=== PATIENT | male | born 1980 | race Two or more races ===

== ENCOUNTER 2025-03-28 13:47 | Emergency (ER) | payer MEDICAID, SELFPAY ==
[2025-03-28] VITALS (7 sets, daily range): BP systolic 145–174; BP diastolic 98–129; PULSE 87–96; RESP 16–99; TEMP 36.7; O2SAT 96–99; BMI 27.6
--- NOTE | 2025-03-28 13:50 | EKG_ITS ---
[facility] Test Date: 2025-03-28 Pat Name: VANESSA LAWSON Department: Room: - Gender: Male [employer] [place]: : 1980 Requested By: Marv Hager Order Number: [id number] Reading MD: Marv Hager Measurements Intervals [place] Rate: 94 P: 59 MT: 160 QRS: 55 QRSD: 82 T: 42 QT: 368 QTc: 460 Interpretive Statements SINUS RHYTHM No previous ECG available for comparison /store/S0/[id number]/[id number].pdf
--- NOTE | 2025-03-28 13:50 | XR_ITS ---
Exam: Chest 1 view, AP Date and time of exam: 03/28/2025, 2:31 p.m. Comparison: None INDICATION: Mental status changes Findings: Normal heart size. No mediastinal adenopathy. No acute fracture No pulmonary edema or pneumonia. Impression: No active disease.
--- NOTE | 2025-03-28 13:50 | XR_ITS ---
Examination: CT brain head without contrast. 2-D sagittal coronal reconstructions Date and time of exam: 03/28/2025, 1:59 p.m. CTDI: vol (mGy): 54 DLP: (mGycm): 1058 INDICATION: Slurred speech Technique: Multiple CT axial sections of the brain have been obtained, 5 mm slice thickness. Contrast has not been administered. 2-D sagittal, coronal reconstructions have been obtained Low dose protocols were performed. One or more of the following dose reduction techniques were used; automated exposure control, adjustment of the mA and/or KV according to patient size, use of iterative reconstruction technique. Findings: 6 x 3 cm hyperdense right frontal/temporal intraparenchymal hemorrhage. Associated peripheral intraparenchymal edema. There is compression of the anterior and midportion of the right lateral ventricle. 6 mm right to left midline shift. Basilar cisterns appear patent. Fourth ventricle is midline. Cranial vault intact. Impression: 6 x 3 cm acute right intraparenchymal hemorrhage with mass effect and 6 mm right to left midline shift with compression of the right lateral ventricle. Basilar cisterns appear patent. No other acute abnormality seen. Findings reported to Dr. Bernard in ER at 2:04 p.m.
--- NOTE | 2025-03-28 14:05 | PD.EDNEURO ---
Neuro Symptoms Deficit-RME/HPI General Chief Complaint: Neuro Symptoms/Deficit Stated Complaint: STROKE ALERT Time Seen by Provider: 03/28/25 13:50 Arrival date/time: 03/28/25 13:47 RME / HPI RME / HPI Narrative: Patient is a 45 year old male with a past medical history of diabetes mellitus type 2-non insulin depdent who presented to the emergency room via private vehicle with a chief complaint of left arm weakness and right facial droop and drooling. Patient was found on the ground by his family member who found on the ground at approximately 1308 on 03/28/2025. Patient stated he woke up at approximately 8 AM this morning and noticed upper extremity weakness and facial droop. Occipital headache 7 out of 10 first noted this morning at 8 AM. Denied blurry vision. Denied nausea. Patient denied previous history of stroke. Denied history of hypertension. Denied meth or cocaine. Per family member alcohol use, unclear how much day. Stroke alert activated-->CT head :acute right intraparenchymal hemorrhage with mass effect and 6 mm right to left midline shift with compression of the right lateral ventricle-->SBP <160 NIHSS 10 GCS 15 points Related Data Allergies Allergy/AdvReac Type Severity Reaction Status Date / Time NKA* Allergy Uncoded 05/26/10 15:29 Review of Systems Review of Systems Narrative Review of Systems: General appearance: head ache NO weight change, NO fatigue, NO weakness, NO fever, NO chills, NO night sweats, No cough Skin: NO rash, NO itching, NO sores, NO moles HEENT: NO Trauma, NO nausea, NO vomiting, NO visual changes, NO blurry vision, NO double vision, NO tinnitus, NO vertigo, NO ear discharge, NO rhinorrhea, NO stuffiness, NO sneezing, NO allergy, NO epistaxis. NO Hoarseness, NO sore throat, NO swollen neck. Cardiac: NO Palpitations, NO dyspnea on exertion, NO orthopnea, NO paroxysmal nocturnal dyspnea, NO edema Respiratory: NO Shortness of Breath, NO Wheezing, NO Cough, NO Sputum, NO hemoptysis GI:NO appetite, NO nausea, NO vomiting, NO dysphagia, NO changes in bowel frequency, NO stool color, NO diarrhea, NO constipation, NO hemetemesis, NO hemorrhoids, NO melena, NO hematechezia, NO abdominal pain, NO jaundice Renal: NO frequency, NO hesitancy, NO urgency, NO hematuria, NO nocturia, NO incontinence MSK: NO muscle weakness, NO gout, NO arthritis, NO muscle stiffness Neuro: Yes headaches, NO tremors, Yes weakness-left, facial droop NO paralysis, NO seizures, NO loss of consciousness, NO numbness. Hem: NO anemia, NO easy bruising/bleeding, NO petechiae, NO purpura Endo: NO heat/cold intolerance, NO excessive sweating, NO polyuria, NO polydipsia, NO polyphagia, NO thyroid problems, NO diabetes Pysch: NO mood, NO anxiety, NO depression ED Exam Narrative Physical exam: General Appearance: Alert & Oriented X3, well-nourished male who is lying in bed in mild distress given upper extremity weakness and facial droop HEENT: Skull symmetrical and atraumatic. Conjunctivae pin and moist. Pupils equal, round, reactive to light and accommodation (PERRL). External ear without lesion or discharge. Straight, nares patient, mucosa pink, no discharge. No thyroid nodule appreciated. No cervical lymphadenopathy. Cardio: Normal Rate and Rhythm with S1 and S2 heart sounds. No murmurs or extra heart sounds auscultated. No bruits on carotid auscultation. No peripheral edema or cyanosis. Lungs: Symmetric with good expansion. Chest and back non-tender. Breath sounds vesicular without crackles, wheezing or rhonchi Abdomen: Non-tender, Non-distended, Normal Reactive Bowel Sounds Neuro: Alert, cooperative, oriented to person, place, and time. Speech clear. Left Upper motor strength 0/5 and Left Lower motor strength 3/5. Sensation intact. Course Quality Measures none Orders Category Date Time Status Bedside Blood Glucose NOW Care 03/28/25 13:50 Active Guest Relations Associate NOW Care 03/28/25 13:50 Active Continuous Pulse Oximetry NOW Care 03/28/25 13:50 Completed EKG (ED ONLY) *Do not use* NOW Care 03/28/25 13:50 Completed [place] [Urinary Catheter] X1 Care 03/28/25 14:12 Active In and Out Catheter NEEDED Care 03/28/25 13:50 Active Insert IV NOW Care 03/28/25 13:50 Active Miscellaneous Nursing Order PRN Care 03/28/25 14:05 Active NIH Stroke Scale now Care 03/28/25 13:50 Active NPO NOW Care 03/28/25 13:50 Active Nurse Swallow Screen x1 Care 03/28/25 13:50 Active Consult to Neurology / Tele-Neurology Routine Cons 03/28/25 13:50 Active Referral - Bobbin Disker Stat Cons 03/28/25 14:[address] angio stroke protocol Stat Exams 03/28/25 13:[address] stroke protocol Stat Exams 03/28/25 13:50 Completed EKG (ED Only) Stat Exams 03/28/25 13:50 Draft XR chest 1V portable Stat Exams 03/28/25 13:50 Taken Alcohol, Blood Medical Stat Lab 03/28/25 13:56 Received Alcohol, Urine Stat Lab 03/28/25 13:50 Ordered Arterial Blood Gas Stat Lab 03/28/25 14:17 Completed B-Type Natriuretic Peptide Stat Lab 03/28/25 13:56 Received CBC Stat Lab 03/28/25 13:56 Completed Comprehensive Metabolic Panel Stat Lab 03/28/25 13:56 Received Drug Screen,Urine Stat Lab 03/28/25 13:50 Ordered Magnesium Stat Lab 03/28/25 13:56 Received Partial Thromboplastin Time Stat Lab 03/28/25 13:56 Completed Prothrombin Time with INR Stat Lab 03/28/25 13:56 Completed TSH [Thyroid Stimulating Hormone] Stat Lab 03/28/25 13:56 Received Troponin I Stat Lab 03/28/25 13:56 Received Type and Screen Stat Lab 03/28/25 14:16 Ordered Urinalysis, C/S if Indicated Stat Lab 03/28/25 13:50 Ordered Labetalol IV [Trandate IV] Med 03/28/25 13:50 Active 10 mg IVP Q15M PRN Nicardipine/Ns 20Mg Ivpb [Cardene Ivpb] Med 03/28/25 14:14 Active 20 mg in 200 ml IV 5 mg/hr Ondansetron Inj [Zofran Inj] Med 03/28/25 13:50 Active 4 mg IVP Q4HR PRN Sodium Chloride 0.9% 1000 ml [Ns] 1,000 ml Med 03/28/25 14:00 Active IV Q10H Oxygen Delivery NOW RT 03/28/25 13:50 Active Vital Signs Vital signs: Vital Signs Pulse Rate 96 03/28/25 13:53 Respiratory Rate 18 03/28/25 13:53 Blood Pressure 145/98 H 03/28/25 13:53 Pulse Oximetry (%) 96 03/28/25 13:53 Oxygen Delivery Method Room Air 03/28/25 13:53 Neuro Symptoms / Deficit Patient data External records reviewed:: [facility] previous records Clinical information provided by:: patient, EMS and family Social determinants that could affect healthcare access:: none Patient has the following chronic illnesses:: diabetes mellitus Type 2, non insulin dependent How is presenting disease/condition affected by chronic disease/condition?: exacerbated by (HTN) Evaluation data The following diagnostics were reviewed and interpreted by me:: lab results, radiology exam(s) and EKG tracing(s) Lab and/or radiology exams considered but not ordered:: none Interpretation Summary: Hemorrhagic stroke give NIHSS score of [address] images showing intraparenchymal hemorrrhage w/ mass effect --->transfer [facility] - The patient's plan was discussed with attending Dr. Joana Zamorano MD PGY2 Internal Medicine Medications / Prescriptions Medications or Prescriptions considered but not ordered:: none Medication administrations:: Medication Administration History Sodium Chloride (Ns) 1,000 mls @ 100 mls/hr IV Q10H NANCY Stop: 04/27/25 13:59 Last Admin: 03/28/25 14:27 Dose: 100 mls/hr Documented By: ELAINE Nicardipine/Sodium Chloride (Cardene Ivpb) 20 mg in 200 mls @ 50 mls/hr IV .Q4H PRN; Protocol PRN Reason: PER PROTOCOL Stop: 04/27/25 14:13 Labetalol HCl (Labetalol Inj 5 Mg/Ml Vial 20 Ml) 10 mg IVP Q15M PRN PRN Reason: HYPER Last Admin: 03/28/25 14:24 Dose: 10 mg Documented By: ELAINE Ondansetron HCl (Ondansetron Inj 2 Mg/Ml Inj 2 Ml) 4 mg IVP Q4HR PRN PRN Reason: NAUSEA OR VOMITING Stop: 04/27/25 13:49 Last Admin: 03/28/25 14:27 Dose: 4 mg Documented By: ELAINE same as above Consultations Consultation(s) initiated? (list below): Yes Consultation #1 (Physician, Specialty, Details): [facility] Neurosurgeon -Dr. Jonathan Pineda Time: 02:56 Diagnosis Neuro Differential Diagnosis: subarachnoid hemorrhage, cerebrovascular accident and transient cerebral ischemia Most likely diagnosis given after review of the tests above:: Hemorrhage Stroke given clinical presentation and CT head images showing intraparenchymal hemorrhage w/ mass effect and 6 mm right left midline shift with compression of the right lateral ventrilce Admission Indicated Admission indicated?: not indicated (Transfer ) Explain why admission is indicated or not indicated:: Patient is presenting with hemorrhage stroke given images and physical presentation of focal neuro deficits. - The patient's plan was discussed with attending Dr. Joana Zamorano MD PGY2 Internal Medicine Admission Request Was there a request for admission?: No Admission Attestation Admission request attestation: [facility]-Transfer Disposition Plan Disposition Plan: Transfer ([facility]) Discharge Plan Plan Patient Disposition: Xfer Acute Care Fac Service Needed for Transfer: Neurosurgery Problem List Clinical Impression: Subarachnoid hemorrhage Patient/Caregiver Discharge Instructions Print Language: Emirati Stand Alone Forms: Awa Award Info., Patient Portal Info Letter
[2025-03-28 14:07] LABS: Basophils # (Auto) 0.0 Thou/mm3 (0.0-0.2); Basophils % (Auto) 0 % (0-2.5); Eosinophils # (Auto) 0.0 Thou/mm3 (0.0-0.5); Eosinophils % (Auto) 0 % (0-10); Hematocrit 45.4 % (41.0-53.0); Hemoglobin 16.3 g/dL (13.5-16.0); Immature Granulocytes Auto 0.04 Thou/mm3 (0.00-0.00); Lymphocytes # (Auto) 0.7 Thou/mm3 (1.0-4.8); Lymphocytes % (Auto) 6 % (10-50); Mean Corpuscular HGB Conc 35.9 g/dl (31.0-37.0); Mean Corpuscular Hemoglobin 31.0 pg (25.0-35.0); Mean Corpuscular Volume 87 fL (80-100); Monocytes # (Auto) 0.4 Thou/mm3 (0.0-0.8); Monocytes % (Auto) 3 % (0-12); Neutrophils # (Auto) 12.1 Thou/mm3 (1.8-7.7); Neutrophils % (Auto) 91 % (37-80); Nucleated Red Blood Cell # 0.00 Thou/mm3 (0.00-0.00); Nucleated Red Blood Cell % 0 /100 WBC (0); Platelet Count 217 Thou/mm3 (140-440); RDW Standard Deviation 40.1 fL (35.1-43.9); Red Blood Count 5.25 Miln/mm3 (4.50-5.90); White Blood Count 13.3 Thou/mm3 (3.8-10.6)
[2025-03-28 14:18] LABS: INR 1.0 (0.9-1.3); Partial Thromboplastin Time 28.6 Seconds (22.0-36.0); Prothrombin Time 10.7 Seconds (9.0-12.2)
[2025-03-28 14:21] LABS: Base Excess 1 (-3-3); HCO3 26 mEq/L (20-26); Inspired Oxygen, FIO2 99 %; O2 Saturation 96 % (91-98); PCO2 40 mmHg (32.0-48.0); PO2 96 mmHg (83-108); pH, Arterial 7.42 (7.35-7.45)
[2025-03-28 14:23] LABS: Allen Test Performed/OK; Puncture Site Right Radial
[2025-03-28] MEDS: LABETALOL INJ 5 MG/ML VIAL 20 ML 10 MG IVP ×2 (14:24→15:24)
[2025-03-28] MEDS: SODIUM CHLORIDE 0.9% 1000 ML 1,000 ML 100 ML IV (14:27)
[2025-03-28] MEDS: ONDANSETRON INJ 2 MG/ML INJ 2 ML 4 MG IVP (14:27)
[2025-03-28 14:42] LABS: Collection Type, Urine Catheter
[2025-03-28 14:46] LABS: Alanine Aminotransferase 24 U/L (10-49); Albumin, Serum 4.0 gm/dL (3.5-5.0); Albumin/Globulin Ratio 1.7 (1.2-2.2); Alcohol, Blood Medical < 3.0 mg/dL (0-10.0); Alkaline Phosphatase 92 U/L (46-116); Anion Gap 12 (7-16); Aspartate Amino Transferase 27 U/L (0-34); BUN/Creatinine Ratio 9 Ratio (12-20); Bilirubin,Total 0.5 mg/dL (0.3-1.2); Blood Urea Nitrogen 16 mg/dL (9-23); Calcium 9.0 mg/dL (8.3-10.6); Calcium (Corrected) 9.0 mg/dL (8.5-10.1); Carbon Dioxide 25.1 mMol/L (20.0-31.0); Chloride 103 mMol/L (98-107); Creatinine (Component) 1.7 mg/dL (0.6-1.3); Estimated Creatinine Clearance 56.8 mL/min (>60); Globulin 2.4 gm/dL (2.3-3.5); Glucose 247 mg/dL (74-106); Magnesium 2.2 mg/dL (1.6-2.6); Osmolality,Calculated 288 (275-295); Potassium 3.4 mMol/L (3.4-5.1); Sodium 140 mMol/L (136-145); Thyroid Stimulating Hormone 1.70 uIU/mL (0.55-4.78); Total Protein 6.4 gm/dL (5.7-8.2); Troponin I < 0.020 ng/mL (0.0-0.045); eGFR 51 See Note
[2025-03-28 14:57] LABS: Bilirubin,Urine Negative (Negative); Blood,Urine 2+ (Negative); Color,Urine Yellow (Lt Yel-Yel); Culture Indicated,Urine Not Indicated; Glucose, Urine 4+ (Negative); Ketones,Urine Negative (Negative); Leukocyte Esterase,Urine Negative (Negative); Nitrite,Urine Negative (Negative); PH,Urine 7.0 (5.0-7.0); Protein,Urine 3+ (Neg - Trace); RBC,Urine 14 /hpf (0-3); Specific Gravity,Urine 1.025 (1.001-1.035); Squamous Epithelial Cell,Urine 1 /hpf (0-5); Urobilinogen,Urine Negative mg/dL (0.0-1.0); WBC,Urine 4 /hpf (0-5)
[2025-03-28 14:58] LABS: Clarity,Urine Hazy (Clear/Hazy); Sperm,Urine Present
[2025-03-28 15:00] LABS: B-Type Natriuretic Peptide 25 pg/mL (0-100)
[2025-03-28 15:01] LABS: Alcohol, Urine Negative (Negative); Amphetamine/Methamp Scrn,U Negative (Negative); Barbiturate Screen,Urine Negative (Negative); Benzodiazepines Screen,Urine Negative (Negative); Benzoylecgonine Screen, Ur Negative (Negative); Fentanyl Screen,Urine Negative (Negative); Opiate Screen,Urine Negative (Negative); THC Screen,Urine Negative (Negative)
--- NOTE | 2025-03-28 15:06 | PC.CM ---
Addendum entered by Tana Iniguez RN 03/28/25 15:15: Patient has been accepte by [facility] ED to ED with Dr. Jonathan Pineda. Number to call and give report is [phone]. I set up stat transfer with [facility]. Original Note: [id number] I spoke to [place] transfer nurse and she connected DR. Pineda with Dr. Zamorano. [id number] I received a referral to transfer nurse to transfer patient for brain bleed. I contacted [facility] and faxed over information
[2025-03-28 15:31] LABS: Creatine Kinase 206 U/L (34-171)
--- NOTE | 2025-03-28 17:39 | ESCONSULT_ITS ---
Tele Neuro Consultation Consultation Date 03/28/25 Most Recent Vital Signs Last Vital Signs Temp 98.0 F 03/28/25 15:50 Pulse 87 03/28/25 15:50 Resp 16 03/28/25 15:50 BP 152/102 H 03/28/25 15:50 Pulse Ox 99 03/28/25 15:50 O2 Del Method Room Air 03/28/25 14:49 Laboratory-Coagulation Panel PT 10.7 Seconds (9.0-12.2) 03/28/25 13:56 INR 1.0 (0.9-1.3) 03/28/25 13:56 APTT 28.6 Seconds (22.0-36.0) 03/28/25 13:56 Consultation Narrative [facility] Tele[facility]urology Consult Services Patient Name:???Trung Rodriguez Date of :???1980 Identification Number:??? Date of Service:???03/28/2025 13:50:46 Diagnosis:?I61.9 - Intracerebral haemorrhage, unspecified Impression: Trung Rodriguez is a 45 yo M w/ a history of hypertension who presents with slurred speech. Exam notable for left facial weakness, dysarthria, and left hemiparesis. Head CT demonstrated a right hemispheric IPH. Recommend the following: - stat neurosurgery consultation - goal SBP < 160 - PT/OT/MILITARY PAY TECHNICIAN Diagnostic Studies: ?Repeat CT head in first 8-12hrs ?CTA head and neck with contrast Laboratory Studies:? INR/PT ? aPTT? CBC Medications:? Hold?antiplatelet?therapy/NSAIDS/Anticoagulation Nursing Recommendations: ? Telemetry, IV Fluids?Avoid dextrose containing fluids, Maintain euglycemia ? Head of bed 30 degrees ? Neuro checks q1-2?hrs?during ICU stay ? Once stable neuro checks q4?hrs ? keep BP less than 140/90's with goal of 130/80s Consultations: ? Need Neurosurgery consultation?STAT ? Recommend Speech therapy if failed dysphagia screen ? Physical therapy/Occupational therapy Disposition: ? Neurology will Follow Metrics: Last Known Well: 03/27/2025 23:00:00 Dispatch Time: 03/28/2025 13:50:46 Arrival Time: 03/28/2025 13:43:00 Initial Response Time: 03/28/2025 13:54:06Symptoms: slurred speech and headache. Initial patient interaction: 03/28/2025 14:01:00 NIHSS Assessment Completed: 03/28/2025 14:09:00Patient is not a candidate for Thrombolytic. Thrombolytic Medical Decision: 03/28/2025 14:14:00Patient was not deemed candidate for Thrombolytic because of following reasons: LKW outside 4.[address] Head: I personally reviewed all the CT images that were available to me and it showed: right hemispheric IPH Primary Provider Notified of Diagnostic Impression and Management Plan on: 03/28/2025 14:30:00 History of Present Illness:Patient is a 45 year old Male. Patient was brought by EMS for symptoms of slurred speech and headache. Trung Rodriguez is a 45 yo M w/ a history of hypertension who presents with slurred speech. LKN at 2300. Awoke with headache and slurred speech. EMS noted left sided weakness in route. Denies any recent trauma. Denies any anticoagulant use. Past Medical History: ?Diabetes Mellitus Medications: No Anticoagulant use? No Antiplatelet use Reviewed EMR for current medications Allergies:? Reviewed Social History: Smoking: No Alcohol Use: No Drug Use: No Family History: There is no family history of premature cerebrovascular disease pertinent to this consultation ROS : 14 Points Review of Systems was performed and was negative except mentioned in HPI. Past Surgical History: There Is No Surgical History Contributory To Today?s Visit Examination: BP(153/76),?Pulse(75),?Blood Glucose(150) 1A: Level of Consciousness - Arouses to minor stimulation?+ 1 1B: Ask Month and Age - Could Not Answer Either Question Correctly?+ 2 1C: Blink Eyes & Squeeze Hands - Performs Both Tasks?+ 0 2: Test Horizontal Extraocular Movements - Normal?+ 0 3: Test Visual Brady - No Visual Loss?+ 0 4: Test Facial Palsy (Use Grimace if Obtunded) - Minor paralysis (flat nasolabial fold, smile asymmetry)?+ 1 5A: Test Left Arm Motor Drift - No Effort Against Dalton?+ 3 5B: Test Right Arm Motor Drift - No Drift for 10 Seconds?+ 0 6A: Test Left Leg Motor Drift - Drift, but doesn't hit bed?+ 1 6B: Test Right Leg Motor Drift - No Drift for 5 Seconds?+ 0 7: Test Limb Ataxia (FNF/Heel-Romo) - No Ataxia?+ 0 8: Test Sensation - Normal; No sensory loss?+ 0 9: Test Language/Aphasia - Normal; No aphasia?+ 0 10: Test Dysarthria - Mild-Moderate Dysarthria: Slurring but can be understood?+ 1 11: Test Extinction/Inattention - Visual/tactile/auditory/spatial/personal inattention?+ 1 NIHSS Score:?10 ICH Score: 3 Maureen Coma Score:5-12 (+1) Age >= 80:No (0) ICH volume >= 30mL:Yes (+1) Intraventricular hemorrhage:Yes (+1) Infratentorial origin of hemorrhage:No (0) Pre-Morbid Modified [place] Scale: 0 Points = No symptoms at all This consult was conducted in real time using interactive audio and video technology. Patient was informed of the technology being used for this visit and agreed to proceed. Patient located in hospital and provider located at home/office setting. Due to the immediate potential for life-threatening deterioration due to underlying acute neurologic illness, I spent 24 minutes providing critical care. This time includes time for face to face visit via telemedicine, review of medical records, imaging studies and discussion of findings with providers, the patient and/or family. Dr Jonny Mahajan [facility] For Inpatient follow-up with [facility] physician please call [facility] at . As we are not an outpatient service for any post hospital discharge needs please contact the hospital for assistance. If you have any questions for the [facility] physicians or need to reconsult for clinical or diagnostic changes please contact us via [facility] at . Non-radiologist review of imaging performed to assist with emergent clinical decision-making. Remote physician workstations do not possess the same resolution, calibration, or diagnostic capabilities as hospital-based radiology reading stations, and formal radiologist read is necessary. Signature :?Jonny Mahajan
== END 2025-03-28 16:10 | disposition short-term general hospital (02) ==
LOC: SERX 15:45
PROVIDERS: Emergency Provider Emergency Medicine
DX: R29.810 Facial weakness (principal); E11.9 Type 2 diabetes mellitus without complications; G81.94 Hemiplegia, unspecified affecting left nondominant side; I10 Essential (primary) hypertension; I60.9 Nontraumatic subarachnoid hemorrhage, unspecified
CPT/HCPCS: 36415; 36600; 51702; 70450; 71045; 80053; 80307; 80320; 81001; 82550; 82803; 83605; 83735; 83880; 84443; 84484; 85025; 85610; 85730; 86850; 86900; 86901; 93005; 96361; 96374; 96375; 96376; 99285; A4314; J2405; J3490; J7030; G0480; J1920